=== PATIENT | female | born 1935 | race Caucasian/White ===

== ENCOUNTER → 2018-01-27 | Outpatient (CLI) | payer MEDICARE | LOC: M RAD 09:52 | DX: E04.2 Nontoxic multinodular goiter (principal) | CPT/HCPCS: 76536 ==

== ENCOUNTER → 2018-09-10 | Outpatient (CLI) | payer MEDICARE ==
[~2018-09-10] MED LIST: ALPR0.25 PO; AMLO5TAB6 PO; ATOR1TAB21 PO; BABY81CH; BIMA01SOL OD; BIMA01SOL OS; CITA20TA6 PO; ECOT325T5; FURO20TA2 PO; GABA-1171 PO; LOVANZA; MELA3TAB PO; MULTCAP PO; MULTIVIT; PERC5TAB8; TAGR80TA PO; TARC150T PO; TIMO0.5S39 OU; VITA50005 PO; XALATAN; ZEST20TA4; ZOFR4TAB16 PO; combigan
--- NOTE | 2018-09-10 17:37 | REP ---
PET/CT: History: Malignant pleural effusion. Metastatic adenocarcinoma. Comparisons: Comparison CT study of the chest is from August 20, 2018. TECHNIQUE: 48 minutes following the intravenous injection of a 8.46 mCi dose of F-18 FDG, three-dimensional PET scintigraphy is acquired from the skull base to the proximal thighs. Triplanar noncontrast CT scanning is acquired through the same anatomic range for attenuation correction, and image registration with scan parameters optimized to minimize radiation exposure to the patient. PET scintigraphy and CT datasets were fused and displayed on a workstation with multiplanar and projection display capability. PET/CT Findings: There is a 3.2 cm hypermetabolic mass in the atelectatic right lower lobe of the lung. This shows maximum standard uptake value of 16.0. There is hypermetabolic estephania uptake in the right hilus, maximum SUV value 5.78. There is a hypermetabolic subcarinal estephania uptake with maximum standard uptake value 17.8. There are multiple foci of hypermetabolic pleural uptake scattered about the right chest in this patient with right pleural effusion and pleural thickening. There is a small focus of hypermetabolic uptake along the right mediastinum adjacent to the superior vena cava which could be pericardial. This has maximum standard uptake value of 7.07. There is a small subcentimeter hypermetabolic lymph node focus in the pretracheal region of the mediastinum at the level of the great vessels. Maximum standard uptake value 4.92. Head and neck soft tissues are unremarkable. In the upper abdomen, there is a small hypermetabolic celiac axis lymph node with maximum standard uptake value of 6.02. No abnormal adrenal uptake is seen. No other abdominal or pelvic abnormality is seen on scintigraphy. Impression: Findings compatible with primary lung malignancy, perhaps in the right lower lobe with right hilar, subcarinal and pretracheal lymphadenopathy. There is a hypermetabolic estephania focus in the upper abdomen in one of the celiac lymph nodes. There are multiple pleural hypermetabolic foci. A right mediastinal margin hypermetabolic focus is seen adjacent to the superior vena cava/pericardial surface. Electronically Signed by Octavio Zuniga MD 09/11/2018 09:31 A
== END ==
LOC: M PLARAD 11:33
PROVIDERS: ATTEND Internal Medicine Pulmonary Disease
DX: C34.31 Malignant neoplasm of lower lobe, right bronchus or lung (principal); N64.53 Retraction of nipple; R51 Headache; J91.0 Malignant pleural effusion; Z78.0 Asymptomatic menopausal state; Z85.89 Personal history of malignant neoplasm of other organs and systems; I25.5 Ischemic cardiomyopathy; I73.9 Peripheral vascular disease, unspecified
CPT/HCPCS: 70553; 77066; 78815; A9552; A9576; G0279

== ENCOUNTER → 2018-09-10 | Outpatient (CLI) | payer MEDICARE ==
[~2018-09-10] MED LIST changes: -ALPR0.25 PO; -AMLO5TAB6 PO; -ATOR1TAB21 PO; -BIMA01SOL OD; -BIMA01SOL OS; -CITA20TA6 PO; -FURO20TA2 PO; -GABA-1171 PO; -MELA3TAB PO; -MULTCAP PO; +PROHANCE 279.3MG/ML 5ML VIAL (A9576) As Ordered ONE; -TAGR80TA PO; -TARC150T PO; -TIMO0.5S39 OU; -VITA50005 PO; -ZOFR4TAB16 PO
--- NOTE | 2018-09-10 11:04 | REP ---
MR BRAIN WITHOUT AND WITH CONTRAST: HISTORY: Headache. CONTRAST: ProHance 6 mL. COMPARISON: 05/12/2009 Areas of increased signal intensity on T2-weighted images are present in the periventricular and subcortical white matter and evin. This represents small vessel ischemic disease. There is no intraparenchymal hemorrhage, infarct mass or midline shift. There is no abnormal enhancement. The ventricular system and cortical sulci are dilated consistent with minimal volume loss. There is no extracerebral collection. The sinuses are clear. IMPRESSION: 1. Small vessel ischemic disease. 2. Minimal volume loss. Electronically Signed by Scot Dalton MD 09/10/2018 11:17 A
--- NOTE | 2018-09-10 14:41 | REPMRS ---
Patient History Recently diagnosed with malignant pleural effusion, unknown primary site. The patient states she has not had a clinical breast exam in over a year. Patient is postmenopausal and has history of other cancer at age 83. Family history of prostate cancer at age 50 or over in father. Digital Mammo Diagnostic Bilateral: September 10, 2018 - Exam #: [id number] Bilateral CC and MLO view(s) were taken. Technologist: Lisette Cadet, Technologist Prior study comparison: December 27, 2015, digital woman screen mammo, performed at [facility]. 2014, bilateral digital mammo screening bilat, performed at [facility]. FINDINGS: There are scattered fibroglandular densities. There has been no change in the appearance of the mammogram from the prior studies. There is a mild amount of scattered fibroglandular density which is fairly symmetric. There is no interval development of dominant mass, architectural distortion, or clustered microcalcification suggestive of malignancy. 3-D tomosynthesis shows no additional findings. Assessment: BI-RADS/ACR category 1 mammogram. Negative Mammogram. Recommendation Routine screening mammogram of both breasts in 1 year (for women over age 40). This patient's Lifetime Breast Cancer RIsk is estimated at 0.6 %. This mammogram was interpreted with the aid of an FDA-approved computer-aided dectection system. Electronically Signed By: Conrad Zuniga MD 09/10/18 [id number]
== END ==
LOC: M RAD 08:49
PROVIDERS: ATTEND Internal Medicine Pulmonary Disease
DX: N64.53 Retraction of nipple (principal); R51 Headache; J91.0 Malignant pleural effusion; Z78.0 Asymptomatic menopausal state; Z85.89 Personal history of malignant neoplasm of other organs and systems; I25.5 Ischemic cardiomyopathy

== ENCOUNTER 2018-09-18 13:10 | Day surgery (SDC) | payer MEDICARE ==
[~2018-09-18] VITALS: Ht 152.4 cm; Wt 66.7 kg
[~2018-09-18 13:10] MED LIST changes: +ALPR0.25 PO; +AMLO5TAB6 PO; +ATOR1TAB21 PO; +BIMA01SOL OD; +CITA20TA6 PO; +FURO20TA2 PO; +GABA-1171 PO; +MELA3TAB PO; +MULTCAP PO; -PROHANCE 279.3MG/ML 5ML VIAL (A9576) As Ordered ONE; +TAGR80TA PO; +TARC150T PO; +TIMO0.5S39 OU; +VITA50005 PO; +ZOFR4TAB16 PO
--- NOTE | 2018-09-18 15:16 | RO ---
DATE OF PROCEDURE: 09/18/2018 PREOPERATIVE DIAGNOSIS: Right pleural effusion. POSTOPERATIVE DIAGNOSIS: Right pleural effusion. PROCEDURE: Right ultrasound-guided thoracentesis, therapeutic SURGEON: Dr. Yee GI TECHNICIAN: No laboratory assistant. ANESTHESIA: Local 1% lidocaine approximately 12 mL administered. Findings of a moderate-sized right pleural effusion under ultrasound. Specimens obtained: 1300 mL of clear yellow fluid. This was disposed of his diagnosis had already been made oriented made. No significant blood loss. No drains, none replaced. No complications. DESCRIPTION OF PROCEDURE: After informed consent was reviewed with the patient in the preoperative area, she was brought back to OPP suite #3. Time-out was performed with two patient identifiers identifying correct site, correct procedure. The right chest wall was ultrasound and the largest fluid collection was marked. The skin was prepped and draped in a sterile manner with chlorhexidine and draped. Under sterile conditions, 1% lidocaine was injected subcutaneously down to the level of the pleura. In entering the pleura, there was return of clear yellow fluid. The needle was removed and a robbie in the skin was made. The Arrow trocar was then advanced into the pleural space again with return of clear yellow fluid. The catheter was advanced over the trocar and the trocar was removed. A total of 1300 mL of clear yellow fluid was removed. The procedure was stopped due to decreased return of fluid. The patient had no observed complications. Oxygen saturation remained above 97%. Under exhalation, the catheter was then removed. A Band-Aid was applied over the site. The patient was in recovery and doing well. Followup will be in 2 weeks with chest x-ray to look for accumulation. The patient was given instructions on when to call for any respiratory issues.
[2018-09-18 15:20] VITALS: BP 153/70
[2018-10-01] MEDS ORDERED: BIMA01SOL OS (10:38)
== END 2018-09-18 15:21 | disposition home or self-care (01) ==
LOC: M OPP 13:10
PROVIDERS: ATTEND Internal Medicine Pulmonary Disease
DX: J90 Pleural effusion, not elsewhere classified (principal)

== ENCOUNTER → 2018-09-30 | Outpatient (CLI) | payer MEDICARE ==
[~2018-09-30] MED LIST changes: +BIMA01SOL OS
--- NOTE | 2018-09-30 12:06 | REP ---
PA and lateral chest: Comparison is a chest CT dated 08/20/2018. There is a large right pleural effusion. Left lung is clear. Cardiac size is normal. The james, mediastinum, and skeletal structures are unremarkable. Impression: Large right pleural effusion. Electronically Signed by Cholo Servin MD 09/30/2018 11:58 A
== END ==
LOC: M SMT 09:37
PROVIDERS: ATTEND Thoracic Surgery (Cardiothoracic Vascular Surgery)
DX: J90 Pleural effusion, not elsewhere classified (principal)

== ENCOUNTER 2018-10-02 10:44 | Day surgery (SDC) | payer MEDICARE ==
[~2018-10-02] VITALS: Ht 152.4 cm; Wt 67.5 kg
[~2018-10-02 10:44] MED LIST changes: -LIDOCAINE 1% MDV 20ML VIAL As Ordered ONE; -MIDAZOLAM INJ 2 MG/2 ML VIAL (J2250) As Ordered ONE
[2018-10-02] MEDS ORDERED: ceFAZolin 2 GM/D5W 50 ML IV BAG (J0690 PER 500MG) As Ordered ONE (11:12)
[2018-10-02 11:20] LABS: HEMATOCRIT 31.7 % (36.0-47.0); HEMOGLOBIN 10.4 g/dl (12.0-15.5); MEAN CORPUSCULAR HEMOGLOBIN 30.4 pg (27.0-33.0); MEAN CORPUSCULAR HGB CONC 32.8 g/dl (32.0-36.5); MEAN CORPUSCULAR VOLUME 92.7 fl (80.0-96.0); PLATELET COUNT, AUTOMATED 222 10^3/uL (150-450); RED BLOOD COUNT 3.42 10^6/uL (4.00-5.40); WHITE BLOOD COUNT 8.4 10^3/uL (4.0-10.0)
[2018-10-02] MEDS ORDERED: MUPIROCIN 2% OINT 22 GM TUBE TOP ONE (11:30)
[2018-10-02 11:31] LABS: INR 0.99; PROTHROMBIN TIME 13.2 SECONDS (12.1-14.4)
[2018-10-02 11:34] LABS: CALCIUM LEVEL 9.5 MG/DL (8.8-10.2); CREATININE FOR GFR 1.02 MG/DL (0.55-1.30); GLOMERULAR FILTRATION RATE 55.1 (>32); POTASSIUM SERUM 4.4 MEQ/L (3.5-5.1)
[2018-10-02] MEDS ORDERED: LIDOCAINE 1% MDV 20ML VIAL As Ordered ONE (13:46)
[2018-10-02 14:54] LABS: PH BODY FLUID 7.588 UNITS (NOT ESTABLISHED); SOURCE, BODY FLUID pH PLEURAL
--- NOTE | 2018-10-02 14:55 | RO ---
DATE OF PROCEDURE: 10/02/2018 PREPROCEDURE DIAGNOSIS: Lung cancer, malignant pleural effusion right side. POSTPROCEDURE DIAGNOSIS: Lung cancer, malignant pleural effusion right side. PROCEDURE: Insertion of tunneled PleurX catheter. SURGEON: Dr. Yovanny Lloyd. SYRUP MIXER: ANESTHESIA: Monitored sedation. 3 mg Versed. DESCRIPTION OF PROCEDURE: Under satisfactory monitored sedation, achieved with 3 mg of Versed, patient prepped and draped in the usual sterile fashion. The entry and exit sites were marked and infiltrated with 1% lidocaine. An exploring needle was placed into the chest with production of fluid. A wire was then placed. Two incision were made, one at the wire site at the entry point, and one at the exit point. A tunnel was then created with a tunneler from the exit to the entry point and the PleurX catheter pulled through and positioned. The tract was then dilated over the wire and the peel-away introducer placed. The PleurX catheter was then placed through the peel-away introducer and the introducer removed. The entry incision was closed with a running #4-0 Monocryl subcuticular suture and the catheter was secured to the abdominal wall by use of a #2-0 silk suture. The patient was then drained of 1000 mL of serous fluid. This was sent for requisite studies, chemistries, hematologies, pathology and bacteriologies. Patient tolerated the procedure well and left for the operating room in satisfactory condition for the recovery room.
[2018-10-02 15:01] VITALS: BP 176/85
[2018-10-02 15:04] LABS: SOURCE, BODY FLUID PLEURAL
[2018-10-02 15:05] LABS: APPEARANCE, BODY FLUID HAZY (CLEAR); PLEURAL FL COLOR YELLOW (COLORLESS)
[2018-10-02 15:15] LABS: AMYLASE, BODY FLUID 27 U/L (NOT ESTABLISHED); CHOLESTEROL, BODY FLUID 69 MG/DL (NOT ESTABLISHED); LDH, BODY FLUID 92 U/L (NOT ESTABLISHED); SOURCE, BODY FLUID ALBUMIN PLEURAL; SOURCE, BODY FLUID AMYLASE PLEURAL; SOURCE, BODY FLUID CHOL PLEURAL; SOURCE, BODY FLUID GLUCOSE PLEURAL; SOURCE, BODY FLUID LDH PLEURAL; SOURCE, BODY FLUID TOT PROTEIN PLEURAL; SOURCE, BODY FLUID TRIG PLEURAL; TOTAL PROTEIN, BODY FLUID 3.3 G/DL (NOT ESTABLISHED); TRIGLYCERIDE, BODY FLUID 23 MG/DL (NOT ESTABLISHED)
--- NOTE | 2018-10-02 15:27 | REP ---
Portable chest, 02:23 p.m., single AP upright view: Comparison is 09/30/2018. There is a right thoracotomy tube. The right pleural effusion has significantly decreased in size. There is no pneumothorax. Left lung is clear. Cardiac size is normal. Electronically Signed by Cholo Servin MD 10/02/2018 03:18 P
== END 2018-10-02 15:02 | disposition home or self-care (01) ==
LOC: M OPP 10:44
PROVIDERS: ATTEND Thoracic Surgery (Cardiothoracic Vascular Surgery)
DX: R93.3 Abnormal findings on diagnostic imaging of other parts of digestive tract (principal)

== ENCOUNTER → 2018-10-02 | Outpatient (CLI) | payer MEDICARE ==
[~2018-10-02] MED LIST changes: +LIDOCAINE 1% MDV 20ML VIAL As Ordered ONE; +MIDAZOLAM INJ 2 MG/2 ML VIAL (J2250) As Ordered ONE
--- NOTE | 2018-10-02 10:36 | REP ---
CT of the chest without IV contrast: Comparisons are the outside chest CT with IV contrast dated 08/20/2018 and the plain film PA and lateral study of the chest dated 09/30/2018. There is a large right pleural effusion similar to both prior studies. There is compression atelectasis of the right lung adjacent to the effusion, as previously. On the comparison CT with IV contrast there is a 3 cm focal zone of nonenhancement within the compressed right lung. This is barely visible today, however, may be obscured in the absence of IV contrast. This may represent a lung mass. The remainder of the right lung is unremarkable. The left lung is unremarkable. There is no mediastinal or axillary lymph node enlargement. The study is insensitive for hilar lymph node enlargement in the absence of IV contrast. There is a 14 mm thyroid left lobe hypodense nodule. Follow-up thyroid ultrasound might be considered. Thoracic aorta is unremarkable except for calcified atheroma. Cardiac size is upper normal. There is no pericardial effusion. The visualized upper abdominal contents are unremarkable. There is no adrenal mass. Impression: Large right pleural effusion as described. Compression atelectasis of the right lung as described. Questionable mass within the compressed right lung. Thyroid left lobe nodule. Consider follow-up ultrasound. Electronically Signed by Cholo Servin MD 10/02/2018 10:27 A
== END ==
LOC: M RAD 09:14
PROVIDERS: ATTEND Thoracic Surgery (Cardiothoracic Vascular Surgery)
DX: C34.31 Malignant neoplasm of lower lobe, right bronchus or lung (principal); J98.11 Atelectasis; E04.1 Nontoxic single thyroid nodule; Z79.899 Other long term (current) drug therapy
CPT/HCPCS: 36415; 71045; 71250; 80048; 82042; 82150; 82465; 82945; 83615; 83986; 84157; 84478; 85027; 85610; 85730; 86850; 87070; 87075; 87102; 87116; 87205; 87206; 88108; 88305; 88313; 89051; J0690; J2250